=== PATIENT | male | born 2000 | race Caucasian/White ===

== ENCOUNTER 2023-03-14 08:54 | Day surgery (SDC) | payer OTHER ==
[2023-03-08 12:38] LABS: BASOPHILS % (AUTO) 0.4 % (0-1); EOSINOPHILS # (AUTO) 0.1 X10'3 (0-0.9); EOSINOPHILS % (AUTO) 0.8 % (0-6); LYMPHOCYTES # (AUTO) 1.6 X10'3 (1.1-4.8); MEAN CORPUSCULAR HGB CONC 34.3 g/dL (33.0-36.5); MEAN CORPUSCULAR VOLUME 84.5 FL (78-98); MEAN PLATELET VOLUME 8.1 FL (7.4-10.4); MONOCYTES # (AUTO) 0.7 X10'3 (0-0.9); MONOCYTES % (AUTO) 7.5 % (2-12); NEUTROPHILS # (AUTO) 7.1 X10'3 (1.8-7.7); NEUTROPHILS % (AUTO) 74.3 % (42-75); PRE OP HEMATOCRIT 44.2 % (42.0-52.0); PRE OP HEMOGLOBIN 15.1 g/dL (14.0-17.9); PRE OP PLATELET COUNT 316 X10'3 (140-440); PRE OP WHITE BLOOD COUNT 9.5 10'3 (4.8-10.8); RED BLOOD COUNT 5.23 X10'6 (4.70-6.10); RED CELL DISTRIBUTION WIDTH 14.1 % (11.5-14.5)
[2023-03-08 12:53] LABS: ALBUMIN/GLOBULIN RATIO 1.1 (1.1-1.5); ALKALINE PHOSPHATASE 71 IU/L (46-116); BLOOD UREA NITROGEN 22 MG/DL (7-18); BUN/CREATININE RATIO 22.7 (10.0-20.0); CALCIUM 9.1 MG/DL (8.5-10.1); CHLORIDE 104 MMOL/L (99-107); CREATININE 0.97 MG/DL (0.60-1.10); PRE OP ANION GAP 9 (8-16); PRE OP AST 26 U/L (10-37); PRE OP BILIRUB, TOTAL 0.3 MG/DL (0.0-1.0); PRE OP GLUCOSE 93 MG/DL (70-104); PRE OP POTASSIUM 3.8 MMOL/L (3.4-5.1); PRE OP SODIUM 140 MMOL/L (135-145); TOTAL CARBON DIOXIDE 26.7 MMOL/L (24-32); TOTAL PROTEIN 7.7 G/DL (6.4-8.2); eGFR > 90 ML/MIN
[2023-03-08 13:02] LABS: PRE OP ALT 110 U/L (30-65)
[2023-03-14] VITALS (12 sets, daily range): BP systolic 100–135; BP diastolic 59–88; PULSE 63–91; RESP 11–20; TEMP 97.7; O2SAT 93–98
[~2023-03-14] VITALS: Ht 172.7 cm; Wt 118.5 kg
[~2023-03-14 08:54] MED LIST: BUPIVAcaine/PF 2.5 mg/ml (0.25%) 30ml vial ONE; LIDOcaine 1% 30ml preserv. free vial ONE; NO HOME MEDS; cefazolin 2gm/D5W 100mL 100 ML IV ONE; famotidine 20mg tablet PO ONE; ringers solution, lacted 1,000 ML IV SCH
[2023-03-14] MEDS ORDERED: labetalol 20mg/4ml (5mg/ml) syringe IV PRN (09:45)
[2023-03-14] MEDS ORDERED: ringers solution, lacted 1,000 ML IV SCH (09:45)
[2023-03-14] MEDS ORDERED: fentaNYL/PF 50MCG/1 ML 2ML syringe IV PRN ×2 (09:45)
[2023-03-14] MEDS ORDERED: hydrALAZINE 20mg/ml inj. IV PRN (09:45)
[2023-03-14] MEDS ORDERED: morphine 4 MG/ML inj SYRINge IV PRN (09:45)
[2023-03-14] MEDS ORDERED: ondansetron/PF 4mg/2ml inj IV PRN (09:45)
[2023-03-14] MEDS ORDERED: fentaNYL/PF 50MCG/1 ML 2ML syringe ONE (12:04)
[2023-03-14] MEDS ORDERED: midazolam 1 mg/ML 2ml injection ONE (12:05)
[2023-03-14] MEDS ORDERED: glycopyrrolate 0.2mg/ml inj ONE (12:05)
[2023-03-14] MEDS ORDERED: neostigmine methylsulfate 1 MG/ML 10ml vial ONE (12:05)
[2023-03-14] MEDS ORDERED: rocuronium 10mg/ml inj IV ONE ×2 (12:05)
[2023-03-14] MEDS ORDERED: desflurane 240ml liquid inh. IH ONE (12:05)
[2023-03-14] MEDS ORDERED: dexamethasone sod phosphate 10mg/ml inj ONE (12:05)
[2023-03-14] MEDS ORDERED: LIDOcaine 1%/PF 5ML 10 MG/ML VIAL ONE (12:05)
[2023-03-14] MEDS ORDERED: propofol inj 20 ML IV ONE (12:05)
[2023-03-14] MEDS ORDERED: ondansetron/PF 4mg/2ml inj ONE (12:06)
[2023-03-14] MEDS ORDERED: acetaminophen 1,000mg/100ml IV 100 ML IV ONE (12:10)
[2023-03-14] MEDS ORDERED: HYDROcodone/acetaminophen 5mg/325mg tablet PO PRN (13:35)
[2023-03-14] MEDS: morphine 2 MG/ML inj. syringe IV PRN ×2 (14:05→15:36)
== END 2023-03-14 16:16 | disposition home or self-care (01) ==
LOC: PAS 08:54
PROVIDERS: ATTEND Surgery
DX: K40.90 Unilateral inguinal hernia, without obstruction or gangrene, not specified as recurrent (principal); E66.9 Obesity, unspecified; Z68.38 Body mass index [BMI] 38.0-38.9, adult; Z72.89 Other problems related to lifestyle; Z79.899 Other long term (current) drug therapy; Z83.3 Family history of diabetes mellitus
CPT/HCPCS: 36415; 49650; 80053; 82948; 85025; C1781; J0131; J0690; J1100; J2250; J2270; J2405; J2704; J2710; J3010; J3490; J7030; J7120; S2900; Z7506; Z7508; Z7512; A4215; A4618